=== PATIENT | female | born 1960 | race Caucasian/White ===

== ENCOUNTER 2016-08-05 19:48 | Emergency (ER) | payer OTHER ==
[2016-08-05 20:36] LABS: HEMATOCRIT 39.4 % (36.0-48.0); HEMOGLOBIN 12.9 g/dL (12-16); MCH 28.4 pg (26.0-34.0); MCHC 32.7 g/dL (31.0-37.0); MCV 86.6 fL (80.0-100.0); MEAN PLATELET VOLUME 9.9 fL (7.4-10.4); PLATELET COUNT 184 10x3/uL (130-400); RBC 4.55 10x6/uL (4.00-5.40); RDW 13.1 % (11.5-14.5); WBC 30.8 10x3/uL (4.8-10.8)
[2016-08-05 20:53] LABS: EOSINOPHILS 5 % (0-7); LYMPHOCYTES 71 % (15-50); MONOCYTES 3 % (2-11); NEUTROPHILS 21 % (40-80); PLATELET ESTIMATE NORMAL
[2016-08-05 20:55] LABS: ALBUMIN 3.9 g/dL (3.4-5.0); ALKALINE PHOSPHATASE 68 U/L (46-116); ALT (SGPT) 33 U/L (10-68); BILIRUBIN - TOTAL 0.26 mg/dL (0.2-1.3); CALC OSMOLALITY 284 mosm/kg (275-300); CALCIUM 9.5 mg/dL (8.5-10.1); CARBON DIOXIDE 27.8 mmol/L (21.0-32.0); CHLORIDE - SERUM 106 mmol/L (98-107); CREATININE - SERUM 0.9 mg/dL (0.6-1.3); GLUCOSE 97 mg/dL (74-106); POTASSIUM - SERUM 3.8 mmol/L (3.5-5.1); PROTEIN - SERUM 6.8 g/dL (6.4-8.2); SODIUM 143 mmol/L (136-145); UREA NITROGEN 13 mg/dL (7-18); eGFR NON AFRICAN AMERICAN 69 mL/min (90-120)
[2016-08-05 21:21] LABS: CKMB 0.3 U/L (0.0-3.6); CREATINE KINASE 77 UL (21-215); MAGNESIUM - SERUM 1.6 mg/dL (1.8-2.4); TROPONIN-I < 0.017 ng/mL (0.000-0.060)
--- NOTE | 2016-08-08 14:16 | CN ---
PATIENT NAME:BLANCA CALLEJAS MEDICAL RECORD: [id number] : 60 LOCATION:ER ADMIT DATE: ACCOUNT: [id number] CONSULTING PHYSICIAN: DIANE HALEY MD REFERRING PHYSICIAN: NICOLAS PARIKH MD DATE OF CONSULTATION: 08/05/2016 Cardiology Consultation ADMITTING DIAGNOSES: 1. Chest discomfort. 2. Hypertension. 3. Chronic lymphocytic leukemia. HISTORY OF PRESENT ILLNESS: Mrs. Callejas is visiting from the [facility]. She had an episode of chest pain last night that resolved. She again had an episode of chest pain tonight, when she had her episode of chest pain, she was at [facility]. She had her blood pressure taken and it was high. She is on lisinopril 10 mg a day. She was at her oncologist's office last week and she was as well told that her blood pressure was high last week. She has not adjusted her medications and has not seen a primary care physician since then. Here, her blood pressure is now in the 140s. She is pain free. Her EKG is with no ST-T abnormalities. Her troponin is normal. She has no cardiac history. She does have a history of hypertension and hyperlipidemia. She has a smoking history as well. PHYSICAL EXAMINATION: GENERAL APPEARANCE: Well-nourished, well-developed, appears stated age. Level of distress, comfortable. PSYCHIATRIC: Mental status, alert, normal affect. Orientation, oriented to time, place and person. EYES: Lids and conjunctiva, noninjected. No discharge, no pallor. ENT: Lips, teeth, gums, normal dentition. Oropharynx, no cyanosis, no pallor. NECK: Carotid arteries, bilateral normal upstroke, no bruits, no thrills. JUGULAR VEINS: No jugular venous pressure or distention. CERVICAL LYMPH NODES: Nontender, nonenlarged. THYROID: Not enlarged. Nontender. No nodules. LUNGS: Respiratory effort, unlabored. CHEST: Normal curvature. No thoracic deformity. No chest wall tenderness. Percussion, resonant. Auscultation, clear. No wheezes, no rales, no rhonchi. CARDIOVASCULAR: Precordial exam, nondisplaced. No heaves or pericardial thrills. Rate and rhythm, regular. Heart sounds, normal S1, normal S2. No S3, no gallop, no rub. Systolic murmur, not heard. Diastolic murmur, not heard. EXTREMITIES: No cyanosis, no edema. Peripheral pulses, full and equal in all extremities, except as noted. No bruits appreciated. ABDOMEN: Soft, nondistended. Normal aorta. No bruit. Nontender. No masses. Liver, nontender, no hepatomegaly. Spleen, nontender, no splenomegaly. MUSCULOSKELETAL: No joint tenderness. No joint swelling. No erythema. NEUROLOGICAL: Normal gait, normal strength, normal tone. SKIN: Warm and dry. REVIEW OF SYSTEMS: The patient reports easy bruising but reports no swollen glands. The patient reports no fever, no night sweats, no significant weight gain, no significant weight loss. No significant exercise tolerance. The patient reports no dry eyes, no irritation, no vision change. Patient reports CONSULT REPORT [id number] RANSOM,BLANCA no difficulty hearing and no ear pain. Patient reports no frequent nose bleeds or nose and sinus problems. Patient reports on arm pain on exertion. No shortness of breath while lying down. No history of heart murmur. Patient reports no cough, no wheezing or coughing up blood. Patient reports no abdominal pain, no vomiting. Normal appetite. No diarrhea and not vomiting blood. No nausea and no constipation. Patient reports no incontinence. No difficulty urinating. No hematuria. No increased frequency. Patient reports no muscle aches. No weakness, no arthralgias, no back pain. No swelling of the extremities. Patient reports no abnormal mole, no jaundice, no rashes. Reports no loss of consciousness. No weakness and no numbness. No seizures, dizziness, or headaches. The patient reports no depression, no sleep disturbance, feeling safe in a relationship and no alcohol abuse. Patient reports on fatigue. Reports no runny nose or sinus pressure. No itching, no hives, and no frequent sneezing. OVERALL IMPRESSION: Chest discomfort, difficult to say if this is cardiac in etiology. Certainly, she has risk factors for coronary disease, but she has a normal EKG, normal troponin and pain free and now that her blood pressure is down, I had advised her to increase her lisinopril to 10 mg b.i.d. rather than 10 mg daily. For better blood pressure goal, follow up with her primary care physician when she returns to [place] and set her up for stress testing for risk stratification. TRANSINT:[id number] Voice Confirmation ID: [id number] DOCUMENT ID: [id number] DIANE HALEY MD at 1416 CC: [id number] DICTATION DATE: 08/05/162316 BIN WORKER: 08/06/16 0404 DEP ER 08/06/16 [place] [id number]
== END 2016-08-06 00:07 | disposition home or self-care (01) ==
LOC: D.ER 19:48
PROVIDERS: Emergency Medicine
DX: R07.9 Chest pain, unspecified (principal); E83.42 Hypomagnesemia; C91.10 Chronic lymphocytic leukemia of B-cell type not having achieved remission; I10 Essential (primary) hypertension; F17.200 Nicotine dependence, unspecified, uncomplicated